=== PATIENT | female | born 1965 | race Asian ===

== ENCOUNTER 2017-08-09 08:37 | Outpatient (CLI) | payer BC, OTHER ==
[2017-08-09 09:56] LABS: HEMATOCRIT 42 % (33-45); HEMOGLOBIN 13.3 g/dL (11.5-14.8); MEAN CORPUSCULAR HGB CONC 31 g/dl (31.0-36.0); MEAN CORPUSCULAR VOLUME 67 fL (82-100); PLATELET COUNT (AUTO) 326 /CMM (150-450); RDW COEFFICIENT OF VARIATION 15.6 (11.5-15.0); RED BLOOD CELL COUNT(AUTO) 6.34 MIL/uL (4.0-5.2)
[2017-08-09 10:04] LABS: ALBUMIN 4.1 g/dL (3.4-5.0); BILIRUBIN,TOTAL 0.4 mg/dL (0.2-1.0); CALCIUM, SERUM 8.8 mg/dL (8.5-10.1); CREATININE 0.6 mg/dL (0.6-1.3); POTASSIUM 4.1 mmol/L (3.5-5.1); TOTAL PROTEIN, SERUM 7.8 g/dL (6.4-8.2)
[2017-08-09 10:12] LABS: THYROID STIMULATING HORMONE 1.229 uIU/mL (0.358-3.74); URIC ACID 3.7 mg/dL (2.6-7.2)
[2017-08-09 10:51] LABS: BAND % (MANUAL) 1 % (0.0-5.0); EOSINOPHILS % (MANUAL) 2 % (0-4); LYMPHOCYTES % (MANUAL) 19 % (16-48); MONOCYTES % (MANUAL) 1 % (0-11.0); NEUTROPHILS % (MANUAL) 77 (42-76)
[2017-08-10 08:31] LABS: PROLACTIN 8.1 ng/mL (4.8-23.3)
== END 2017-08-09 23:59 | disposition home or self-care (01) ==
LOC: US 08:37
PROVIDERS: ATTEND Family Medicine
DX: N88.8 Other specified noninflammatory disorders of cervix uteri (principal); M25.551 Pain in right hip; R79.89 Other specified abnormal findings of blood chemistry
CPT/HCPCS: 36415; 76856-TC; 80053-TC; 80061-TC; 82306; 84146; 84439-TC; 84443-TC; 84550-TC; 85025-TC; 86431-TC

== ENCOUNTER 2018-11-26 15:22 | Outpatient (CLI) | payer BC | END 2018-11-26 23:59 | disposition home or self-care (01) | LOC: RAD 15:22 | PROVIDERS: ATTEND Family Medicine | DX: M18.9 Osteoarthritis of first carpometacarpal joint, unspecified (principal) | CPT/HCPCS: 73110 ==

== ENCOUNTER 2019-05-29 15:07 | Outpatient (CLI) | payer BC | END 2019-05-29 23:59 | disposition home or self-care (01) | LOC: RAD 15:07 | PROVIDERS: ATTEND Family Medicine | DX: M79.672 Pain in left foot (principal) | CPT/HCPCS: 73630-TC ==

== ENCOUNTER 2019-10-28 13:18 | Day surgery (SDC) | payer BC ==
[~2019-10-28] VITALS: Ht 157.5 cm; Wt 59.0 kg
[2019-10-28] MEDS ORDERED: IOHEXOL-350 100 ML VIAL IV ONE ×2 (19:27→19:56)
[2019-10-28] MEDS ORDERED: IV NS 0.9% 250 ML IV ONE ×2 (19:27→19:58)
--- NOTE | 2019-10-28 19:41 | NUR ---
IV LINE ESTABLISHED L AC G18. INTACT AND INFUSING WELL.
[2019-10-28] MEDS ORDERED: NITROGLYCERIN 0.4 MG/TAB BOTTLE ONE (19:48)
[2019-10-28 20:02] VITALS: BP 128/77
--- NOTE | 2019-10-28 20:10 | NUR ---
POST CTA CTA PROCEDURE WELL TOLERATED BY THE PT. V/S STABLE, NOT IN RESPIRATORY DISTRESS, KEPT RESTED AND COMFORTABLE. REPORT GIVEN TO EMT FOR PT TRANSFER BACK TO [facility].
[2019-10-28] MEDS ORDERED: NITROGLYCERIN 0.4 MG/TAB BOTTLE SL ONE (20:30)
== END 2019-10-28 20:21 | disposition short-term general hospital (02) ==
LOC: CT 13:18
PROVIDERS: ATTEND Internal Medicine Interventional Cardiology
DX: K44.9 Diaphragmatic hernia without obstruction or gangrene (principal)
CPT/HCPCS: 75574; J7050 ×2; Q9967 ×2

== ENCOUNTER 2020-01-22 09:11 | Outpatient (CLI) | payer BC ==
[2020-01-22 09:59] LABS: BASOPHILS % (AUTO) 0.8 % (0.0-2.0); EOSINOPHILS % (AUTO) 1.5 % (0.0-6.0); HEMATOCRIT 40 % (33-45); HEMOGLOBIN 12.7 g/dL (11.5-14.8); LYMPHOCYTES # (AUTO) 2.3 /CMM (0.8-4.8); LYMPHOCYTES % (AUTO) 38.3 % (20.0-44.0); MEAN CORPUSCULAR HGB CONC 32 g/dl (31.0-36.0); MEAN CORPUSCULAR VOLUME 67 fL (82-100); MONOCYTES # (AUTO) 0.3 /CMM (0.1-1.30); MONOCYTES % (AUTO) 5.5 % (2.0-12.0); NEUTROPHILS # (AUTO) 3.2 /CMM (1.8-8.9); NEUTROPHILS % (AUTO) 53.9 % (43.0-81.0); PLATELET COUNT (AUTO) 279 /CMM (150-450); RED BLOOD CELL COUNT(AUTO) 6.03 MIL/uL (4.0-5.2)
[2020-01-22 10:21] LABS: ALBUMIN 3.9 g/dL (3.4-5.0); BILIRUBIN,TOTAL 0.4 mg/dL (0.2-1.0); CALCIUM, SERUM 8.7 mg/dL (8.5-10.1); CREATININE 0.5 mg/dL (0.6-1.3); POTASSIUM 4.1 mmol/L (3.5-5.1); TOTAL PROTEIN, SERUM 7.4 g/dL (6.4-8.2)
[2020-01-22 10:38] LABS: THYROID STIMULATING HORMONE 1.413 uIU/mL (0.358-3.74)
[2020-01-23 10:07] LABS: FOLIC ACID > 20.0 ng/mL (>3.0)
== END 2020-01-22 23:59 | disposition home or self-care (01) ==
LOC: LAB 09:11
PROVIDERS: ATTEND Family Medicine
DX: E53.9 Vitamin B deficiency, unspecified (principal); J30.2 Other seasonal allergic rhinitis
CPT/HCPCS: 36415; 80053-TC; 80061-TC; 82728-TC; 83540-TC; 84439-TC; 84443-TC; 85025-TC; 86431-TC

== ENCOUNTER 2020-02-05 11:55 | Outpatient (CLI) | payer BC | END 2020-02-05 23:59 | disposition home or self-care (01) | LOC: MRI 11:55 | PROVIDERS: ATTEND Family Medicine | DX: M47.816 Spondylosis without myelopathy or radiculopathy, lumbar region (principal); M51.26 Other intervertebral disc displacement, lumbar region; N28.1 Cyst of kidney, acquired | CPT/HCPCS: 72148-TC ==

== ENCOUNTER 2020-08-31 10:05 | Outpatient (CLI) | payer BC | END 2020-08-31 23:59 | disposition home or self-care (01) | LOC: RAD 10:05 | PROVIDERS: ATTEND Family Medicine | DX: R07.9 Chest pain, unspecified (principal); Z72.0 Tobacco use | CPT/HCPCS: 71046 ==

== ENCOUNTER → 2021-12-08 | Outpatient (CLI) | payer BC ==
[~2021-12-08] MED LIST: CT SWABBABLE VALVE TRANS SET 1 EA INFUS.SET MC ONE; IOHEXOL-350 100 ML VIAL IV ONE; IV NS 0.9% 250 ML IV ONE
== END | disposition home or self-care (01) ==
LOC: CT 08:54
PROVIDERS: ATTEND Family Medicine
DX: N28.1 Cyst of kidney, acquired (principal); R31.29 Other microscopic hematuria
CPT/HCPCS: 74178; J7050; Q9967

== ENCOUNTER 2023-01-02 11:34 | Outpatient (CLI) | payer BC ==
[2023-01-02] MEDS ORDERED: GADOTERATE MEGLUMINE 10 MMOL/20 ML VIAL IV ONE (11:35)
== END 2023-01-02 23:59 | disposition home or self-care (01) ==
LOC: MRI 11:34
PROVIDERS: ATTEND Family Medicine
DX: R42 Dizziness and giddiness (principal)
CPT/HCPCS: 70553; A9575